=== PATIENT | female | born 1960 | race Caucasian/White ===

== ENCOUNTER → 2019-07-13 09:26 | Outpatient (BNVA) | payer BC, SELFPAY | PROVIDERS: PCP Nurse Practitioner Family; Visit Provider Orthopaedic Surgery | DX: M17.0 Bilateral primary osteoarthritis of knee (principal) | CPT/HCPCS: 73560; 73565 ==

== ENCOUNTER → 2020-06-03 16:21 | Outpatient (BNVA) | payer MEDICAID, SELFPAY | PROVIDERS: PCP Nurse Practitioner Family; Visit Provider Internal Medicine | DX: Z20.828 Contact with and (suspected) exposure to other viral communicable diseases (principal); Z01.818 Encounter for other preprocedural examination | CPT/HCPCS: 87635 ==

== ENCOUNTER 2020-06-07 09:01 | Day surgery (SDC) | payer MEDICAID, SELFPAY ==
[2020-06-05 13:57] VITALS: BMI 46.3
[2020-06-07 09:16] VITALS: BP 136/109; PULSE 105; RESP 18; TEMP 36.2; O2SAT 99
[2020-06-07] MEDS: sodium chloride 0.9% 1,000 ML 30 ML IV (09:34)
--- NOTE | 2020-06-07 09:42 | P.ANESASSM_ITS ---
Pre-Anesthetic Assessment Pre-Anesthetic Assessment: Height/Weight: Height 1.55 m Weight 111.13 kg Temp Pulse Resp BP Pulse Ox 97.2 F L 105 H 18 136/109 99 06/07/20 09:16 06/07/20 09:16 06/07/20 09:16 06/07/20 09:16 06/07/20 09:16 Preop Diagnosis: abdominal Pain Proposed Procedure: Operation Date: 06/07/20 10:30 Proposed Procedures p Colonoscopy 43437 R10.30(Not Applicable) - Noman Villatoro MD Familial anesthetic complications: None Was Beta Nadya taken within 24 hours: N/A Last intake: Intake Last Liquid Date 06/06/20 Last Liquid Time 23:00 Last Solid Date 06/05/20 Last Solid Time 15:00 Social: Social History: No alcohol and No tobacco Exam: Pre-Anes Outpt Exam: alert, oriented x 3, clear to auscultation donal aterally and regular rate & rhythm Airway: Cervical ROM: WNL MP: 3 Dentition: Full Pulmonary: Pulmonary: None reported CV/HEM: CV/HEM: HTN Anesthetic Plan: ASA status: 2 Risk of > 500 ml blood loss (7ml/kg in children): No Meds/Allergies Current Medications: Current Medications Generic Name Dose Route Start Last Admin Trade Name Freq PRN Reason Stop Dose Admin Sodium Chloride 1,000 mls @ 30 ml s/hr 06/07/20 09:15 06/07/20 09:34 Sodium Chloride 0.9% IV 30 mls/hr .Q24H YESSENIA Administration PFSH Anesthesia PFSH: Social History (Updated 06/03/20 @ 13:55 by JACK Young) Smoking and tobacco status: never smoked Alcohol intake: never History of recent travel: No Data Anesthesia Cardiac Studies: No Data to Display
--- NOTE | 2020-06-07 09:58 | W.PM.OPSUD ---
Surgery/Procedure H&P Update DATE OF PROCEDURE: June 07, 2020 DATE H&P PERFORMED: 06/03/20 PREOP DIAGNOSIS: abdominal Pain PLANNED PROCEDURE: Operation Date: 06/07/20 10:30 Proposed Procedures p Colonoscopy 34270 R10.30(Not Applicable) - Noman Villatoro MD
[2020-06-07 11:40] VITALS: BP 112/63; PULSE 80; RESP 16; TEMP 36.7; O2SAT 97
[2020-06-07 11:57] VITALS: BP 138/84; PULSE 90; RESP 16; O2SAT 99
--- NOTE | 2020-06-07 17:15 | ANE.PACU2 ---
Inpatient post-anesthesia follow up: Airway intact: Yes Vital signs: Temperature 98.0 F Pulse Rate 90 Respiratory Rate 16 Blood Pressure 138/84 Pulse Oximetry 99 Oxygen Delivery Me thod Room Air Oxygen Flow Rate Fraction of Inspir ed Oxygen Hydration adequate: Yes Nausea and vomiting: No Pain level: 2 Mental status: Baseline
== END 2020-06-07 12:06 | disposition home or self-care (01) ==
PROVIDERS: PCP Nurse Practitioner Family; Visit Provider Internal Medicine
PROC: 0DJD8ZZ Inspection of Lower Intestinal Tract, Via Natural or Artificial Opening Endoscopic (ICD-10-PCS; CPT 45378; principal; 2020-06-07 10:30)
DX: R10.30 Lower abdominal pain, unspecified (principal); K57.30 Diverticulosis of large intestine without perforation or abscess without bleeding; I10 Essential (primary) hypertension
CPT/HCPCS: 12345; 45378; J2704; J7030

== ENCOUNTER 2020-12-17 10:34 | Outpatient (CLI) | payer MEDICAID, SELFPAY ==
--- NOTE | 2020-12-17 11:00 | XR_ITS ---
WS: [id number] LUMBAR SPINE FLEXION AND EXTENSION TECHNIQUE: 3 views of the lumbar spine: Lateral neutral, flexion, and extension views. CLINICAL INFORMATION: LBP COMPARISON: None. FINDINGS: Slight anterolisthesis L4 on L5 measuring 2.6 mm in neutral. This increases slightly on flexion to 4. 2 mm and decreases on extension to 2.1 mm. Incidental limbus vertebra L5 superior endplate. Disc spac e narrowing L4-L5 and L5-S1. Moderate facet arthropathy L4-L5 and L5-S1. XR/XR lumbar spine f/e only [id number] IMPRESSION: Grade 1 anterolisthesis L4 on L5 with mild instability.
== END 2020-12-17 10:35 | disposition home or self-care (01) ==
PROVIDERS: PCP Nurse Practitioner Family; Visit Provider Nurse Practitioner
DX: M54.5 Low back pain (principal); M53.2X6 Spinal instabilities, lumbar region
CPT/HCPCS: 72120

== ENCOUNTER 2021-01-24 08:34 | Day surgery (SDC) | payer MEDICAID, SELFPAY ==
--- NOTE | 2021-01-24 08:55 | ANES.PREANE2 ---
Pre-Anesthetic Assessment Pre-Anesthetic Assessment: Height/Weight: Height 1.55 m Weight 113.398 kg Preop Diagnosis: dysphagia Proposed Procedure: Operation Date: 01/24/21 10:30 Proposed Procedures p EGD Dilation W/ Bougie 60354 R13.10(Not Applicable) - Noman Villatoro MD Was Beta Nadya taken within 24 hours: N/A Was Clonidine taken within 24 hours: N/A Social: Social History: No alcohol and No tobacco Exam: Pre-Anes Outpt Exam: alert, oriented x 3, clear to auscultation bilaterally and regular rate & rhythm Airway: Submandibular: WNL Cervical ROM: WNL MP: 2 Dentition: Full CV/HEM: CV/HEM: HTN GI: GI: GERD Metabolic: Metabolic: Morbid obesity Musc/skel: Musc/skel: OA/DJD Neuropsych: Neuropsych: Anxiety Anesthetic Plan: ASA status: 3 Anesthesia: MAC Risk of > 500 ml blood loss (7ml/kg in children): No PFSH Anesthesia PFSH: Social History Smoking and tobacco status: never smoked Alcohol intake: never History of recent travel: No Data Anesthesia Cardiac Studies: No Data to Display
[2021-01-24] MEDS: sodium chloride 0.9% 1,000 ML 30 ML IV (09:21)
[2021-01-24 09:22] VITALS: BP 163/105; PULSE 99; RESP 18; TEMP 36.1; O2SAT 98
--- NOTE | 2021-01-24 09:45 | W.PM.OPSFHP ---
Same Day Surgery H&P Indication for Procedure/HPI DATE OF PROCEDURE: January 24, 2021 CHIEF COMPLAINT/INDICATIONFOR SURGICAL PROCEDURE: Dysphagia PREOP DIAGNOSIS: dysphagia PLANNED PROCEDRUE: Operation Date: 01/24/21 10:30 Proposed Procedures p EGD Dilation W/ Bougie 64281 R13.10(Not Applicable) - Noman Villatoro MD Medications/Allergies* Home Medications Medication Instructions Recorded Confirmed Type diclofenac sodium 50 mg 50 mg PO QDAY 07/13/19 01/22/21 History tablet,delayed release lisinopril 20 mg tablet 20 mg PO QDAY 07/13/19 01/22/21 History sertraline 25 mg tablet 50 mg PO DAILY 01/16/21 01/22/21 History Allergies/Adverse Reactions Allergy/AdvReac Type Severity Reaction Status Date / Time codeine Allergy rash Verified 01/24/21 09:20 Penicillins Allergy rash Verified 01/24/21 09:20 Current Medications: Generic Name Dose Route Start Last Admin Trade Name Freq PRN Reason Stop Dose Admin Sodium Chloride 1,000 mls @ 30 mls/hr 01/24/21 09:00 01/24/21 09:21 Sodium Chloride 0.9% IV 01/25/21 08:59 30 mls/hr .Q24H YESSENIA Administration Pertinent History/Comorbid Conditions* Social History Smoking and tobacco status: never smoked Alcohol intake: never History of recent travel: No Pertinent Exam Findings alert, oriented x 3, clear to auscultation bilaterally, regular rate & rhythm, operative site marked and procedure specific exam findings Recommendations Surgery/Procedure today Coding Level of Care Code Acute Public Records Researcher for Mila Mcmanus
[2021-01-24 11:04] VITALS: BP 153/95; PULSE 80; RESP 16; TEMP 36.4; O2SAT 95
[2021-01-24 11:24] VITALS: BP 156/86; PULSE 70; RESP 18; O2SAT 100
--- NOTE | 2021-01-24 11:39 | ANE.PACU2 ---
Inpatient post-anesthesia follow up: Airway intact: Yes Vital signs: Temperature 97.5 F Pulse Rate 70 Respiratory Rate 18 Blood Pressure 156/86 Pulse Oximetry 100 Oxygen Delivery Me thod Room Air Oxygen Flow Rate Fraction of Inspir ed Oxygen Hydration adequate: Yes Nausea and vomiting: No Pain level: 1 Mental status: Baseline
[2021-01-26 12:32] LABS: H. Pylori / CLO Test Negative
== END 2021-01-24 11:44 | disposition home or self-care (01) ==
PROVIDERS: PCP Nurse Practitioner Family; Visit Provider Internal Medicine
DX: R13.10 Dysphagia, unspecified (principal); Q39.9 Congenital malformation of esophagus, unspecified; K44.9 Diaphragmatic hernia without obstruction or gangrene; K29.70 Gastritis, unspecified, without bleeding; I10 Essential (primary) hypertension; E66.01 Morbid (severe) obesity due to excess calories; Z68.42 Body mass index [BMI] 45.0-49.9, adult; F41.9 Anxiety disorder, unspecified
CPT/HCPCS: 43239; 87077; 96360; 96361; J2704; J7030

== ENCOUNTER → 2021-03-19 10:55 | Outpatient (BNVA) | payer MEDICAID, SELFPAY | PROVIDERS: PCP Nurse Practitioner Family; Referring Provider Nurse Practitioner; Visit Provider Podiatrist Foot & Ankle Surgery | DX: M21.611 Bunion of right foot (principal) | CPT/HCPCS: 73630 ==

== ENCOUNTER 2021-04-09 11:18 | Outpatient (CLI) | payer MEDICAID, SELFPAY ==
--- NOTE | 2021-04-09 12:45 | US_ITS ---
WS: [id number] ULTRASOUND SOFT TISSUES RIGHT foot HISTORY: Rule out Carter's Neuroma COMPARISON: None available. TECHNIQUE: 2-D and color Doppler imaging is submitted. Hypoechoic nodule between the third and fourth metatarsal heads suspicious for Carter's neuroma. This hypoechoic nodule measures 6 x 5 x 4 mm. No increased vascularity. No adjacent fluid. US/US soft tissue/extremity [id number] IMPRESSION: Findings consistent with a very small neuroma between the third and fourth meta tarsals.
== END 2021-04-09 11:19 | disposition home or self-care (01) ==
LOC: RAD 11:20
PROVIDERS: PCP Nurse Practitioner Family; Visit Provider Podiatrist Foot & Ankle Surgery
DX: G57.61 Lesion of plantar nerve, right lower limb (principal)
CPT/HCPCS: 76882

== ENCOUNTER 2021-04-10 12:37 | Outpatient (CLI) | payer MEDICAID, SELFPAY ==
--- NOTE | 2021-04-10 13:05 | MR_ITS ---
WS: [id number] MRI RIGHT ANKLE without CONTRAST. COMPARISON: None Multiplanar, multisequence imaging is performed without contrast. Noninsertional thickening of the Achilles tendon. Mild tendon thickening is approximately 3.5 cm abov e the insertion site. There is some very minimal crescentic shaped increased signal within the fur dressing supervisor ior and medial portion of the tendon. This corresponds to the marker placed in the area of pain. Ther e is no peritendinous edema or retrocalcaneal bursitis. This may be a partially healed tendinopathy. No marrow edema or fracture. No fluid or tears within the peroneal tendon sheath. Extensor and flexor tendons are normal. Ligaments at the ankle are normal. MR/MR ankle RT wo con* [id number] IMPRESSION: 1. Mild tendinopathy noninsertional Achilles tendon. No associated peritendino us edema. No tear. 2. No marrow edema.
== END 2021-04-10 12:38 | disposition home or self-care (01) ==
LOC: RADSHAW 12:40
PROVIDERS: PCP Nurse Practitioner Family; Visit Provider Podiatrist Foot & Ankle Surgery
DX: M76.61 Achilles tendinitis, right leg (principal)
CPT/HCPCS: 73721

== ENCOUNTER → 2022-04-01 10:49 | Outpatient (BNVA) | payer MEDICARE, MEDICAID, SELFPAY | PROVIDERS: PCP Nurse Practitioner Family; Visit Provider Orthopaedic Surgery | DX: M17.0 Bilateral primary osteoarthritis of knee (principal); E66.01 Morbid (severe) obesity due to excess calories; Z68.42 Body mass index [BMI] 45.0-49.9, adult | CPT/HCPCS: 20610; 99212; J0702; J3490 ==

== ENCOUNTER → 2022-05-12 12:56 | Outpatient (BNVA) | payer MEDICARE, MEDICAID, SELFPAY | PROVIDERS: PCP Nurse Practitioner Family; Visit Provider Physician Assistant | DX: M47.816 Spondylosis without myelopathy or radiculopathy, lumbar region (principal) | CPT/HCPCS: 72110; 99203 ==

== ENCOUNTER 2022-07-14 12:45 | Outpatient (CLI) | payer MEDICARE, MEDICAID, SELFPAY ==
--- NOTE | 2022-07-14 13:00 | MR_ITS ---
WS: [id number] MRI LUMBAR SPINE NONCONTRAST TECHNIQUE: Sagittal T1, T2 and STIR imaging. Axial T1 and T2 imaging. CLINICAL INFORMATION: pain COMPARISON: None. FINDINGS: Mild lumbar curve. No acute compression. Slight anterolisthesis L4 on L5. Severe central canal stenos is L4-L5. L1-L2: Normal. L2-L3: Mild annular bulging with slight effacement of ventral thecal sac. Mild facet arthropathy. Mil d LEFT and no significant RIGHT foraminal narrowing. L3-L4: Mild annular bulging with slight effacement of ventral thecal sac. Mild central canal stenosis . Mild facet arthropathy. Foramen are patent. L4-L5: Slight anterolisthesis L4 on L5. Disc bulging in combination with advanced facet arthropathy r esults in severe central canal stenosis. Impingement traversing L5 nerve roots bilaterally. Foramen a re patent. L5-S1: Mild annular bulging with slight encroachment traversing LEFT S1 nerve root in the subarticula r recess. Mild facet arthropathy. Spinal canal and foramen are patent. Visualized pelvic bony structures: Normal. Paravertebral soft tissues: Normal. MR/MR lumbar spine wo con* [id number] IMPRESSION: 1. Mild lumbar curve. No acute compression. 2. Slight anterolisthesis L4 on L5 in combination with disc bulging and advanc ed facet arthropathy results in severe central canal stenosis. Impingement debbie ersing L5 nerve roots bilaterally LEFT greater than RIGHT. 3. Mild central canal stenosis L3-L4 with annular bulging and slight narrowin g of the subarticular recess LEFT greater than RIGHT. 4. Mild annular bulging L5-S1 with slight impingement on the traversing LEFT S 1 nerve root. 5. Mild LEFT L2-L3 foraminal narrowing. 6. Moderate facet arthropathy L3-L4 and L4-L5.
== END 2022-07-14 12:46 | disposition home or self-care (01) ==
LOC: RAD 12:49
PROVIDERS: PCP Nurse Practitioner Family; Visit Provider Physician Assistant
DX: M48.061 Spinal stenosis, lumbar region without neurogenic claudication (principal); M51.27 Other intervertebral disc displacement, lumbosacral region; M47.816 Spondylosis without myelopathy or radiculopathy, lumbar region
CPT/HCPCS: 72148

== ENCOUNTER → 2022-07-16 12:48 | Outpatient (BNVA) | payer MEDICARE, MEDICAID, SELFPAY | PROVIDERS: PCP Nurse Practitioner Family; Visit Provider Orthopaedic Surgery | DX: M54.50 Low back pain, unspecified (principal) | CPT/HCPCS: 99214 ==

== ENCOUNTER → 2022-09-15 09:28 | Outpatient (BNVA) | payer MEDICARE, MEDICAID, SELFPAY | PROVIDERS: PCP Nurse Practitioner Family; Referring Provider Orthopaedic Surgery; Visit Provider Anesthesiology Pain Medicine | DX: M54.50 Low back pain, unspecified (principal); M79.604 Pain in right leg; M79.605 Pain in left leg | CPT/HCPCS: 99205 ==

== ENCOUNTER → 2025-01-10 10:27 | Outpatient (BNVA) | payer MEDICARE, MEDICAID, SELFPAY | PROVIDERS: PCP Nurse Practitioner; Visit Provider Podiatrist Foot & Ankle Surgery | DX: M79.671 Pain in right foot (principal); M25.571 Pain in right ankle and joints of right foot; M92.61 Juvenile osteochondrosis of tarsus, right ankle; M76.61 Achilles tendinitis, right leg; M19.071 Primary osteoarthritis, right ankle and foot | CPT/HCPCS: 73610; 73620; 99204 ==

== ENCOUNTER 2025-05-17 18:34 | Emergency (ER) | payer MEDICARE, MEDICAID, SELFPAY ==
[2025-05-17 18:39] VITALS: BP 197/107; PULSE 114; RESP 16; TEMP 36.4; O2SAT 98; BMI 45.8
--- NOTE | 2025-05-17 18:44 | ECG_ITS ---
[facility] Date: 2025-05-17 Pat Name: Debbie De Oliveira Department: Room: Gender: Female Laboratory Tester: : [id number] Requested By: Connie Fortune Order Number: [id number] Mahsa MD: Dustin Quiros M.D. Measurements Intervals [place] Rate: 110 P: 69 [place]: 135 QRS: 2 QRSD: 87 T: 63 QT: 324 QTc: 439 Interpretive Statements SINUS TACHYCARDIA LOW QRS VOLTAGE IN PRECORDIAL LEADS [QRS DEFLECTION < 1.0 mV IN CHEST LEADS] ABNORMAL RHYTHM ECG No previous ECG available for comparison Electronically Signed On 05-19-2025 14:09:02 THERAPIST'S ASSISTANT by Dustin Quiros M.D. [email or web address]
--- OUTSIDE RECORDS SUMMARY | 2025-05-17 18:45 | XMS_ITS | Encounter Summary ---
Author Organization [facility] Address [address] [place] [address] Care Team Providers Care Pattern Technician Name Role Phone Unavailable Primary Care Provider Unavailabl e Encounter Details Date Type Department Care Team (Latest Contact Info) Description 08/01/2002 Outpatient Historical [facility] Imaging Services-[facility] [place] [address] [place] [address] Nahum Olmedo MD NO ADDRESS ON FILE ABD/PEL SWELL/MASS/LUMP RLQ (Primary Dx); FEMALE GENITAL SYMPTOMS NOS Social History Tobacco Use Types Packs/Day Years Used Date Smoking Tobacco: Never Assessed Comments Unknown Sex and Gender Information Value Date Recorded Sex Assigned at Not on file 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
--- OUTSIDE RECORDS SUMMARY | 2025-05-17 18:45 | XMS_ITS | Clinical Summary ---
Author Organization [facility] Address [address] [place] [address] Phone Care Team Providers Care Tailing Machine Operator Name Role Phone Unavailable Primary Care Provider Unavailabl e Allergies Active Allergy Reactions Criticality Noted Date Comments Codeine Rash Low 08/06/2015 Morphine Other (See Comments) 08/06/2015 Unknown reaction, told as a child. Penicillins Anaphylaxis,Rash High 08/06/2015 Medications traMADol (ULTRAM) 50 mg tabletIndication s:Right knee pain,MMT (medial meniscus tear), right, initial encounter Take 100 mg by mouth every 6 hours as needed for Pain. Active naproxen (NAPROSYN) 250 mg tabletIndication s:Right knee pain,MMT (medial meniscus tear), right, initial encounter Take 250 mg by mouth 2 times daily with meals. Active ibuprofen (MOTRIN) 200 mg tabletIndication s:Right knee pain,MMT (medial meniscus tear), right, initial encounter Take 200 mg by mouth every 6 hours as needed for Pain, Mild. 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 Gender Identity Not on file Sexual Orientation Not on file Last Filed Vital Signs Vital Sign Reading Time Taken Comments Blood Pressure 140/96 09/30/2015 1:19 PM CDT Pulse 130 09/30/2015 1:19 PM CDT Temperature - - Respiratory Rate - - Oxygen Saturation - - Inhaled Oxygen Concentration - - Weight 96.6 kg (213 lb) 09/30/2015 1:19 PM CDT Height 152.4 cm (5') 09/30/2015 1:19 PM CDT Body Mass Index 41.6 09/30/2015 1:19 PM CDT Plan of Treatment Health Maintenance Due Date Last Done Comments DTAP/TDAP/TD VACCINES (1 - Tdap) 1981 HPV/Cotest (21-29) 1983 CERVICAL CANCER SCREENING 1992 HPV/Cotest (30-65) 1992 PAP SMEAR 1992 BREAST CANCER SCREENING 2002 COLORECTAL SCREENING 2007 Colorectal Cancer Screening 2007 FIT-DNA Q 3 years 2007 FIT/FOBT Q 1 year 2007 Flex Sig/CT Colonography Q 5 years 2007 ZOSTER VACCINE (1 of 2) 2012 INFLUENZA VACCINE (#1) 2025 RSV VACCINE (60+ or ) (1 - 1-dose 75+ series) 2037 Insurance [employer]
--- OUTSIDE RECORDS SUMMARY | 2025-05-17 18:45 | XMS_ITS | Encounter Summary ---
Author Organization [facility] Address [address] [place] [address] Care Team Providers Care Regional Clinical Research Associate Name Role Phone Unavailable Primary Care Provider Unavailabl e Encounter Details Date Type Department Care Team (Latest Contact Info) Description 08/01/2002 Outpatient Historical [facility] Imaging Services-[facility] [place] [address] [place] [address] Nahum Olmedo MD NO ADDRESS ON FILE ADMINISTRTVE ENCOUNT NOS (Primary Dx) Social History Tobacco Use Types Packs/Day Years Used Date Smoking Tobacco: Never Assessed Comments Unknown Sex and Gender Information Value Date Recorded Sex Assigned at Not on file 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
--- OUTSIDE RECORDS SUMMARY | 2025-05-17 18:45 | XMS_ITS | Clinical Summary ---
Author Organization [facility] Address [address] Attn: Epic Prelude ADT [place] [address] Care Team Providers Care Kaiawhina Kohanga Reo Name Role Phone Unavailable Primary Care Provider Unavailabl e Allergies Active Allergy Reactions Criticality Noted Date Comments Codeine Rash Low 08/06/2015 Morphine Other (See Comments) 08/06/2015 Unknown reaction, told as a child. Penicillins Anaphylaxis,Rash High 08/06/2015 Medications traMADoL (ULTRAM) 50 mg tabletIndication s:Right knee pain,MMT (medial meniscus tear), right, initial encounter Take 100 mg by mouth every 6 hours as needed for Pain. 08/06/2015 Active ibuprofen (MOTRIN) 200 mg tabletIndication s:Right knee pain,MMT (medial meniscus tear), right, initial encounter Take 200 mg by mouth every 6 hours as needed for Pain, Mild. 08/06/2015 Active naproxen (NAPROSYN) 250 mg tabletIndication s:Right knee pain,MMT (medial meniscus tear), right, initial encounter Take 250 mg by mouth 2 times daily with meals. 08/06/2015 Active Social History Tobacco Use Types Packs/Day Years Used Date Smoking Tobacco: Never Alcohol Use Standard Drinks/Week Comments No 0 (1 standard drink = 0.6 oz pur e alcohol) Comments Unknown Sex and Gender Information Value Date Recorded Sex Assigned at Not on file Legal Sex Female 7:59 AM LEASING DIRECTOR Gender Identity Not on file Sexual Orientation [...]
--- OUTSIDE RECORDS SUMMARY | 2025-05-17 18:45 | XMS_ITS | Encounter Summary ---
Author Organization [facility] Address [address] [place] [address] Care Team Providers Care Gum Sprayer Name Role Phone Unavailable Primary Care Provider Unavailabl e Encounter Details Date Type Department Care Team (Latest Contact Info) Description 08/01/2002 Outpatient Historical [facility] [place] [address] [place] [id number] Nahum Olmedo MD NO ADDRESS ON FILE ABD/PEL SWELL/MASS/LUMP RLQ (Primary Dx) Social History Tobacco Use Types Packs/Day Years Used Date Smoking Tobacco: Never Assessed Comments Unknown Sex and Gender Information Value Date Recorded Sex Assigned at Not on file 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
--- NOTE | 2025-05-17 18:56 | XRR_ITS ---
PROCEDURE INFORMATION: Exam: XR Chest Exam date and time: 05/17/2025 7:05 PM Age: 65 years old Clinical indication: Pain; Chest pressure; Additional info: Chest pain TECHNIQUE: Imaging protocol: Radiologic exam of the chest. Views: 1 view. COMPARISON: No relevant prior studies available. FINDINGS: Lungs: Unremarkable. No consolidation. Pleural spaces: Unremarkable. No pleural effusion. No pneumothorax. Heart/Mediastinum: Unremarkable. No cardiomegaly. Bones/joints: Unremarkable. XR/XR chest 1V portable [id number] IMPRESSION: No acute findings.
[2025-05-17 19:07] VITALS: BP 177/92; PULSE 106; RESP 18; O2SAT 97
--- NOTE | 2025-05-17 19:09 | W.ED.CHESTPA ---
HPI - Chest Pain General: Chief Complaint: Headache Stated Complaint: High BP SoB light headed feels like its heart Time Seen by Provider: 05/17/25 18:55 History of Present Illness: Patient is a 65-year-old female with history of HTN, presents to the emergency room due to frontal ocular headache, chest discomfort on the left side of her chest. She states that her chest discomfort is hard to explain. It is not midline or feel like reflux. She has mild shortness of breath, however this is no change in the last 30 days with her cold, and cough. She is a never smoker. She never had a cardiac rule out. No family history of CAD. Unknown cholesterol. Denies history of reactive airway disease. Headache: This is more frontal ocular ride across her eyes. This started this afternoon. The headache, and the chest discomfort that she is having difficulty describing, started about 3:34 PM. This has been continuous. Blood pressure on presentation is 197/107. She states she has some lightheadedness, mild dizziness. She is unsure why her heart rate is elevated. No recent travel. Associated symptoms: Reports dyspnea (Over the last month); Deny abdominal pain, fever(s), nausea, palpitations or vomiting Related Data Home Medications ?Medication ?Instructions ?Recorded ?Confirmed lisinopril 20 mg tablet 20 mg PO QDAY 07/13/19 09/15/22 amlodipine 5 mg tablet 5 mg PO DAILY 01/10/25 01/10/25 Previous Rx's ?Medication ?Instructions ?Recorded Heel lift to the right #1 ea 03/19/21 cyclobenzaprine 10 mg tablet See Rx Instructions .Route 02/12/22 .COMPLEX #90 tabs diazepam 5 mg tablet (Valium) 5 mg PO ONCE PRN 05/12/22 anxiety/claustrophobia #3 tabs methocarbamol 750 mg tablet 750 mg PO Q8H PRN muscle spasm #30 05/17/25 tabs Allergies Allergy/AdvReac Type Severity Reaction Status Date / Time hydrocodone Allergy Mild Shortness Verified 01/10/25 10:43 of breath and Rash metronidazole (From Flagyl) Allergy Mild Messes Verified 01/10/25 10:43 with the tendons morphine Allergy Mild Shortness Verified 01/10/25 10:43 of breath and Rash codeine Allergy rash Verified 01/10/25 10:43 Penicillins Allergy rash Verified 01/10/25 10:43 Review of Systems General: Reports: 10 or more systems reviewed and unremarkable except in HPI and below Const: Denies: fever(s) or chills Card: Reports: chest pain; Denies: palpitations or irregular heart rhythm Resp: Reports: dyspnea (Over the last month) and non-productive cough GI: Denies: abdominal pain, nausea or vomiting : Denies: flank pain or difficulty voiding Musc: Denies: neck pain or back pain Skin/Breast: Denies: rash or pruritus Neuro: Reports: headache(s); Denies: numbness in extremities Psych: Denies: anxiety or depression PFSH ED PFSH: Social History Smoking and tobacco/nicotine status: never used tobacco/nicotine Alcohol intake: never Substance/Drug Use: never Physical Exam Const: COMMON NORMALS: no acute distress, average body habitus and patient oriented x3 HENMT: COMMON NORMALS: normocephalic and atraumatic HEAD & SCALP: normocephalic and atraumatic Neck/C-Spine: COMMON NORMALS: no JVD Chest: COMMONS NORMALS: normal inspection of the chest, normal palpation of entire chest wall, normal inspection of the breasts and normal palpation of the breasts Breast/axilla inspection: Yes normal inspection of the breasts BREAST/AXILLA PALPATION: Yes normal palpation of the breasts Resp: COMMON NORMALS: normal respiratory effort, No retractions, No use of accessory muscles, clear to auscultation bilaterally and percussion normal AUSCULTATION: clear to auscultation bilaterally PERCUSSION: percussion normal Cardio: COMMON NORMALS: no JVD, regular rate, regular rhythm, S1 normal heart sound present, S2 normal heart sound present, No gallops present (Cardio), No clicks present (Cardio), No murmurs present (Cardio), No rub (Cardio) and Peripheral pulses 2+ throughout RATE: regular rate RHYTHM: regular rhythm HEART SOUNDS: S1 normal heart sound present and S2 normal heart sound present PERIPHERAL PULSES: Peripheral pulses 2+ throughout GI: COMMON NORMALS: Normal to inspection, nondistended, normoactive bowel sounds present, Soft to palpation and non-tender PALPATION: Yes Soft to palpation : COMMON NORMALS: Yes no CVA tenderness BLADDER/KIDNEY EXAM: Yes no CVA tenderness Back/Pelvis: COMMON NORMALS: no CVA tenderness Extremity: COMMON NORMALS: normal to inspection, full ROM and capillary refill normal Neuro: COMMON NORMALS: patient oriented x3 Psych: COMMON NORMALS: mental status grossly normal, Normal thought process present and cooperative THOUGHT PROCESS: Normal thought process present Course Reevaluation(s): Reevaluation #1: Improved after aerosol therapy, dexamethasone, aspirin Vital Signs: Vital signs: Vital Signs Temperature 97.5 F L 05/17/25 18:39 Pulse Rate 101 H 05/17/25 20:42 Respiratory Rate 16 05/17/25 20:42 Blood Pressure 161/90 05/17/25 20:42 Pulse Oximetry 95 05/17/25 20:42 Oxygen Delivery Me thod Room Air 05/17/25 19:45 MDM - Chest Pain Medical Decision Making Patient is a 62-year-old female that comes to the emergency room with complaints of headache, and left-sided chest pain. Patient was given aspirin for ACS, Mylanta, however given this is not midline, less likely esophageal spasm/reflux. Initial troponin is less than 6. She has had this chest pain on and off for over 3 hours. Troponin would be increasing if it was ACS. D-dimer is negative. Headache is improving with the clonidine. She is on daily lisinopril, and amlodipine. Will have her follow a low-sodium diet, and further discuss with her primary if she needs referral to cardiology. Her abnormal breath sounds: Wheezes, have been present, according to patient for the last ongoing month after healing from viral illness. Also concerned about differentials including obstructive sleep apnea. Patient stated this was the case, however insurance coverage issues, she did not pursue further testing. Medical Records I reviewed the patient's medical records. Lab Data I reviewed the patient's lab results. 05/17/25 19:16 05/17/25 19:16 Radiology Impressions Chest X-Ray 05/17/25 18:56 IMPRESSION: No acute findings. Laboratory Results WBC 8.78 10^3/uL (3.29-11.43) 05/17/25 19:16 RBC 4.87 10^6/uL (3.85-5.65) 05/17/25 19:16 Hgb 14.00 g/dL (11.27-16.99) 05/17/25 19:16 Hct 43.1 % (36-47) 05/17/25 19:16 MCV 88.5 fl (85-98) 05/17/25 19:16 MCH 28.7 pg (27-33) 05/17/25 19:16 MCHC 32.5 g/dL (30-55) 05/17/25 19:16 RDW 13.2 % (12.1-15.1) 05/17/25 19:16 Plt Count 313 10^3/cmm (157-399) 05/17/25 19:16 MPV 10.2 fL (7.4-10.4) 05/17/25 19:16 Neut % (Auto) 60.5 % 05/17/25 19:16 Lymph % (Auto) 28.0 % 05/17/25 19:16 Harrison % (Auto) 5.5 % 05/17/25 19:16 Eos % (Auto) 4.9 % 05/17/25 19:16 Baso % (Auto) 0.9 % 05/17/25 19:16 Neut # (Auto) 5.31 10^3/uL (1.8-7.7) 05/17/25 19:16 Lymph # (Auto) 2.5 10^3/uL (0.8-4.8) 05/17/25 19:16 Harrison # (Auto) 0.5 10^3/uL (0.2-0.9) 05/17/25 19:16 Eos # (Auto) 0.4 10^3/uL (0.0-0.8) 05/17/25 19:16 Baso # (Auto) 0.1 10^3/uL (0.0-0.1) 05/17/25 19:16 Nucleated RBC % (auto) 0 % 05/17/25 19:16 Nucleated RBCs # 0.0 /100WBC 05/17/25 19:16 D-Dimer 0.48 ug/mLFEU (0-0.59) 05/17/25 19:16 Sodium 140 mmol/L (136-145) 05/17/25 19:16 Potassium 3.8 mmol/L (3.5-5.1) 05/17/25 19:16 Chloride 100 mmol/L (98-107) 05/17/25 19:16 Carbon Dioxide 25 mmol/L (22-29) 05/17/25 19:16 Anion Gap 18.8 (5-19) 05/17/25 19:16 BUN 13 mg/dL (8-23) 05/17/25 19:16 Creatinine 0.8 mg/dL (0.5-0.9) 05/17/25 19:16 GFR Calculation 72.4 mL/min (90-130) L 05/17/25 19:16 Glucose 141 mg/dL (65-115) H 05/17/25 19:16 Calculated Osmolality 292 mOsm/kg (285-295) 05/17/25 19:16 Calcium 9.9 mg/dL (8.5-10.5) 05/17/25 19:16 Total Bilirubin 0.4 mg/dL (0.15-1.2) 05/17/25 19:16 AST 33 U/L (0-32) H 05/17/25 19:16 ALT 32 U/L (0-33) 05/17/25 19:16 Alkaline Phosphatase 93 U/L (35-105) 05/17/25 19:16 Troponin T Baseline < 6 ng/L (0-10) 05/17/25 19:16 NT-Pro-B Natriuret Pep < 36 pg/mL (0-125) 05/17/25 19:16 Total Protein 8.3 g/dL (6.6-8.7) 05/17/25 19:16 Albumin 4.6 g/dL (3.5-5.2) 05/17/25 19:16 Globulin 3.7 g/dL (1.3-4.6) 05/17/25 19:16 XR interpretation done by ED provider, pending radiology final review ED provider radiology interpretation(s): No acute finding EKG Data EKG 1: Interpretation: No ST segment elevation Discharge Plan Discharge Patient Disposition: Home Clinical Impression: Non-cardiac chest pain Hypertension Qualifiers: Hypertension type: primary hypertension Qualified Code(s): I10 - Essential (primary) hypertension Condition: Stable Prescriptions: New methocarbamol 750 mg tablet 750 mg PO Q8H PRN (Reason: muscle spasm) Qty: 30 0RF No Action lisinopril 20 mg tablet 20 mg PO QDAY (DME) Heel lift to the right See Rx Instructions .Route .MEDSUPPLY Qty: 1 0RF Rx Instructions: As directed cyclobenzaprine 10 mg tablet See Rx Instructions .ROUTE .COMPLEX Qty: 90 8RF Dose Instruction: TAKE ONE TABLET BY MOUTH 3 TIMES DAILY NEEDED FOR MUSCLE SPASMS MAX DAILY DOSE THREE (3) TABLETS Rx Instructions: TAKE ONE TABLET BY MOUTH 3 TIMES DAILY NEEDED FOR MUSCLE SPASMS MAX DAILY DOSE THREE (3) TABLETS diazepam [Valium] 5 mg tablet 5 mg PO ONCE PRN (Reason: anxiety/claustrophobia) Qty: 3 0RF Rx Instructions: 1PO 1 hr before mri, 1 po at MRI amlodipine 5 mg tablet 5 mg PO DAILY Discharge Orders: Discharge ED (Routine); Ordered 05/17/25 Ordered By: Connie Fortune Referrals: Juan A Vela FNP [Primary Care Provider, Nurse Practitioner] Discharge Diet: Low Salt Patient Instructions: Chest Pain - Noncardiac, DASH Eating Plan (ED), Noncardiac Chest Pain (ED), Patient Portal & Larry Instructions Activity Restrictions/Additional Instructions: - You have been provided low salt diet information. Continue your other blood pressure medications: Amlodipine, lisinopril. -Follow-up with your primary care physician: Discuss whether you need to be referred to a science instructor regarding your chest pain, and additional testing. - Follow-up with your primary care physician regarding your ongoing wheezing and discuss whether to workup more for obstructive sleep apnea - Consider taking a daily baby coated aspirin of 81 mg for primary prevention while discussing with your primary care physician - Return to ED if you have chest pain occur again, migraine type ocular headache, or any additional workup, or your temperature greater than 100.4 is [facility] Thank you for choosing [facility] for your healthcare needs today. You have been screened and evaluated and felt safe for discharge. Health conditions do change or evolve sometimes and as such it is important that you follow up with your Primary Doctor to be re checked, 3-5 days is a general good time frame for follow up. You are always welcome to return to the ED for re assessment if your symptoms are worsening or you have new concerns Print Language: Vincentian Coding Level of Care Code ED Weight And Test Bar Clerk for Javierg Fwd Heart Score HEART Score Components History: Slightly Suspicous EKG: Normal Age: 45-64 yrs Risk Factors: 1 or 2 Risk Factors Troponin: Baseline Trop <16 ng/L HEART Score RESULT HEART Score: 2
[2025-05-17 19:22] LABS: Hematocrit 43.1 % (36-47); Hemoglobin 14.00 g/dL (11.27-16.99); Mean Corpuscular HGB Conc 32.5 g/dL (30-55); Mean Corpuscular Hemoglobin 28.7 pg (27-33); Mean Corpuscular Volume 88.5 fl (85-98); Nucleated Red Blood Cells % 0 %; Platelet Count 313 10^3/cmm (157-399); Red Blood Count 4.87 10^6/uL (3.85-5.65); White Blood Count 8.78 10^3/uL (3.29-11.43)
[2025-05-17 19:31] VITALS: BP 162/88
[2025-05-17] MEDS: alum-mag-hydroxide-sime 30 mL UDC PO (19:31)
[2025-05-17 19:43] LABS: Troponin(5th) Baseline < 6 ng/L (0-10)
[2025-05-17 19:45] VITALS: PULSE 105; RESP 18; O2SAT 96
[2025-05-17 20:00] VITALS: BP 152/83; PULSE 105; RESP 18; O2SAT 95
[2025-05-17 20:23] LABS: Alanine Aminotransferase 32 U/L (0-33); Albumin Level 4.6 g/dL (3.5-5.2); Alkaline Phosphatase 93 U/L (35-105); Anion Gap 18.8 (5-19); Aspartate Amino Transferase 33 U/L (0-32); Blood Urea Nitrogen 13 mg/dL (8-23); Calcium 9.9 mg/dL (8.5-10.5); Carbon Dioxide 25 mmol/L (22-29); Chloride 100 mmol/L (98-107); Globulin 3.7 g/dL (1.3-4.6); Glucose 141 mg/dL (65-115); NT Pro B Type Natriuretic Pept < 36 pg/mL (0-125); Osmolality Calculated 292 mOsm/kg (285-295); Potassium 3.8 mmol/L (3.5-5.1); Sodium 140 mmol/L (136-145); Total Protein 8.3 g/dL (6.6-8.7)
[2025-05-17] MEDS: orphenadrine 30 mg/mL Inj 2 mL 60 MG IM (20:27)
[2025-05-17 20:42] VITALS: BP 161/90; PULSE 101; RESP 16; O2SAT 95
== END 2025-05-17 20:45 | disposition home or self-care (01) ==
PROVIDERS: Emergency Provider Physician Assistant; PCP Nurse Practitioner
DX: R07.89 Other chest pain (principal); I10 Essential (primary) hypertension
CPT/HCPCS: 36415; 71045; 80053; 83880; 84484; 85025; 85378; 93005; 94640; 96372; 96374; 99285; J1100; J1885; J2360; J9999